=== PATIENT | male | born 1975 ===

== ENCOUNTER → 2017-08-08 | Outpatient (CLI) | payer OTHER | END | disposition home or self-care (01) | LOC: PPH VACUNA 08:01 | DX: Z23 Encounter for immunization (principal) ==

== ENCOUNTER 2018-07-06 21:43 | Emergency (ER) | payer OTHER ==
[~2018-07-06] VITALS: Ht 177.8 cm; Wt 74.8 kg
[2018-07-06] MEDS ORDERED: KETO10TA2 PO (23:29)
[2018-07-06] MEDS ORDERED: MAXALT5 MG PO (23:29)
== END 2018-07-06 23:48 | disposition home or self-care (01) ==
LOC: ER 21:43
DX: R51 Headache (principal)

== ENCOUNTER → 2021-06-09 | Outpatient (CLI) | payer OTHER ==
[~2021-06-09] MED LIST: KETO10TA2 PO; MAXALT5 MG PO
== END | disposition home or self-care (01) ==
LOC: PPH VACUNA 08:00
PROVIDERS: ATTEND Emergency Medicine Pediatric Emergency Medicine
DX: Z23 Encounter for immunization (principal)

== ENCOUNTER 2022-04-14 12:54 | Outpatient (CLI) | payer OTHER | END 2022-04-14 12:59 | disposition home or self-care (01) | LOC: PPH VACUNA 12:54 | PROVIDERS: ATTEND Emergency Medicine Pediatric Emergency Medicine | DX: Z23 Encounter for immunization (principal) ==